=== PATIENT | male | born 1955 | race Caucasian/White ===

== ENCOUNTER 2016-05-25 12:33 | Day surgery (SDC) | payer BC ==
[2016-05-25 14:12] LABS: POINT-OF-CARE METER ID UU13113696
[2016-05-25] MEDS ORDERED: LO-DOSE ASPIRIN81 M2 PO (14:13)
[2016-05-25] MEDS ORDERED: ATORVASTATIN CA80 MG PO (14:16)
[2016-05-25] MEDS ORDERED: LISINOPRIL2.5 MG PO (14:18)
[2016-05-25] MEDS ORDERED: METFORMIN HCL500 M4 PO (14:19)
[2016-05-25] MEDS ORDERED: TOPROL XL25 MG PO (14:20)
[2016-05-25] MEDS ORDERED: MULTI-DAY VITA1 EACH PO (14:21)
[2016-05-25] MEDS ORDERED: NICOTROL INHALE10 MG IH (14:22)
[2016-05-25] MEDS ORDERED: PROTONIX40 MG PO (14:23)
[2016-05-25] MEDS ORDERED: ASCORBIC ACID500 M3 PO (14:24)
[2016-05-25] MEDS ORDERED: CIALIS20 MG PO (14:26)
== END 2016-05-25 20:00 | disposition home or self-care (01) ==
LOC: CATH 12:33
PROVIDERS: Internal Medicine Cardiovascular Disease
DX: I25.10 Atherosclerotic heart disease of native coronary artery without angina pectoris (principal); R07.9 Chest pain, unspecified; Z95.5 Presence of coronary angioplasty implant and graft; I10 Essential (primary) hypertension; E78.5 Hyperlipidemia, unspecified; E11.9 Type 2 diabetes mellitus without complications
CPT/HCPCS: 82948; C1769; C1887; J1644; J2250; J3010; J7050